=== PATIENT | male | born 1975 | race Caucasian/White ===

== ENCOUNTER 2017-06-25 17:58 | Inpatient (IN) | payer BC, MEDICAID ==
[~2017-06-25] VITALS: Ht 185.4 cm; Wt 89.4 kg
[2017-06-25 18:15] VITALS: BP 117/62
[2017-06-25] MEDS ORDERED: Activated Charcoal 50gm/240ml Btl ORAL ONE (18:15)
[2017-06-25] MEDS ORDERED: NS 1000ml 2,900 ML IVLG ONE ×2 (19:00→23:45)
[2017-06-25] MEDS ORDERED: Meropenem 1 GM in NS 110 ML IVPB ONE (19:00)
[2017-06-25 19:01] LABS: MEAN CORPUSCULAR HGB CONC 36.5 G/DL (32.0-36.0); MEAN CORPUSCULAR VOLUME 90 FL (80-99); MEAN PLATELET VOLUME 10.5 FL (6.5-10.1); PLATELET COUNT 74 K/UL (150-450); RED BLOOD COUNT 3.94 M/UL (4.70-6.10); RED CELL DISTRIBUTION WIDTH 11.3 % (11.6-14.8); WHITE BLOOD COUNT 8.8 K/UL (4.8-10.8)
[2017-06-25 19:21] LABS: APPEARANCE,URINE CLEAR; KETONES,URINE 3+ (NEGATIVE); LEUKOCYTE ESTERASE ,URINE 1+ (NEGATIVE); NITRITE,URINE NEGATIVE (NEGATIVE); PH,URINE 6 (4.5-8.0); PROTEIN,URINE 3+ (NEGATIVE); UROBILINOGEN,URINE 1 MG/DL (0.0-1.0)
[2017-06-25 19:29] LABS: ACETAMINOPHEN < 10 ug/mL (10-30); ALANINE AMINOTRANSFERASE 298 U/L (3-41); ALBUMIN/GLOBULIN RATIO 1.7 (1.0-2.7); ALCOHOL < 10 mg/dL; ANION GAP 13 (5-15); ASPARTATE AMINO TRANSFERASE 474 U/L (5-40); CALCIUM 8.6 mg/dL (8.6-10.2); CARBON DIOXIDE 22 mEQ/L (20-30); CHLORIDE 103 mEQ/L (98-107); CREATININE 1.2 mg/dL (0.7-1.2); GLOMERULAR FILTRATION RATE > 60 mL/min (>60); HEMOLYSIS 8; POTASSIUM 3.5 mEQ/L (3.4-4.9); SODIUM 138 mEQ/L (135-145)
[2017-06-25] MEDS ORDERED: Meropenem 1gm vial ONE (19:31)
[2017-06-25 19:39] LABS: WBC,URINE 0-2 /HPF (0 - 0)
[2017-06-25 19:40] LABS: AMORPHOUS SEDIMENT,UR FEW /LPF; BACTERIA,URINE FEW /HPF
[2017-06-25 19:43] LABS: ICTOTEST NEGATIVE
[2017-06-25 19:51] LABS: BILIRUBIN,DIRECT 0.3 mg/dL (0.1-0.3)
[2017-06-25 20:05] VITALS: BP 118/68
[2017-06-25 20:15] LABS: TROPONIN I < 0.30 ng/mL (<=0.30)
[2017-06-25 20:24] LABS: CKMB 20.7 ng/mL (< 6.7)
[2017-06-25 20:32] LABS: BAND NEUTROPHILS % (MANUAL) 1 % (0-8); BASOPHILS % (MANUAL) 0 % (0-2); EOSINOPHILS % (MANUAL) 0 % (0-3); LYMPHOCYTES % (MANUAL) 19 % (20-45); NEUTROPHILS % (MANUAL) 69 % (45-75); PLATELET ESTIMATE DECREASED; PLATELET MORPHOLOGY NORMAL; TOTAL CELLS COUNTED 100
[2017-06-25] MEDS ORDERED: UNOBMED (21:21)
[2017-06-25] MEDS ORDERED: Zolpidem 5mg tab ORAL PRN (21:30)
[2017-06-25] MEDS ORDERED: LORazepam Inj 2mg/ml 1ml IV PRN (21:30)
[2017-06-25] MEDS ORDERED: Miralax 17gm pkt ORAL PRN (21:30)
[2017-06-25] MEDS ORDERED: Mylanta II UD 30ml ORAL PRN (21:30)
[2017-06-25 21:40] VITALS: BP 113/78
[2017-06-25] MEDS ORDERED: Morphine Sulfate 2mg/ml Inj IVP PRN (22:00)
[2017-06-25 22:20] VITALS: BP 137/83
--- NOTE | 2017-06-25 23:42 | Emergency Room Report ---
History of Present Illness General Chief Complaint: Overdose Source: Patient, EMS Present Illness HPI This patient has a history of benzodiazepine abuse and overdose. He was recently admitted to [facility] for benzodiazepine overdose. He took a handful of 20-40 Clonopin earlier today. He has no other complaints. He is sleepy. Allergies: Coded Allergies: PENICILLINS (Verified Allergy, Unknown, 06/25/17) Patient History Past Medical History: see triage record, HIV Social History: Reports: smoking, alcohol use, drug use Reviewed Nursing Documentation: PMH: Agreed, PSxH: Agreed Review of Systems All Other Systems: negative except mentioned in HPI Physical Exam Vital Signs Date Time Temp Pulse Resp B/P (MAP) Pulse Ox O2 Delivery O2 Flow Rate FiO2 06/25/17 18:03 100.2 117 21 127/75 96 Room Air 06/25/17 18:15 2.0 Sp02 EP Interpretation: reviewed, normal General Appearance: no apparent distress, GCS 15, non-toxic, lethargic Head: normocephalic, atraumatic Eyes: bilateral eye normal inspection, bilateral eye PERRL ENT: hearing grossly normal, normal pharynx, no angioedema, normal voice Neck: full range of motion, supple/symm/no masses Respiratory: chest non-tender, lungs clear, normal breath sounds, speaking full sentences Cardiovascular #1: regular rate, rhythm, no edema Gastrointestinal: normal bowel sounds, non tender, soft, non-distended, no guarding, no rebound Rectal: deferred Musculoskeletal: back normal, gait/station normal, normal range of motion, non- tender, calf tenderness Neurologic: responsive, motor strength/tone normal, sensory intact, speech normal, other - Sleepy, non-focal Skin: normal color, no rash, warm/dry, well hydrated Medical Decision Making Diagnostic Impression: Primary Impression: Drug overdose Additional Impressions: Benzodiazepine abuse Benzodiazepine (tranquilizer) overdose Rhabdomyolysis Fever ER Course This patient presents with benzodiazepine overdose. He is also and rhabdomyolysis. He does not have a fever. He had episodes of diarrhea here in the emergency department. He is given aggressive IV fluid resuscitation. His given broad-spectrum antibiotics. He is admitted to the [facility]. This patient is critically ill. This patient required complex medical decision- making, aggressive intervention, extensive laboratory workup and monitoring. Critical care time: 40 minutes. Laboratory Tests Test 06/25/17 18:20 06/25/17 18:55 White Blood Count 8.8 K/UL (4.8-10.8) Red Blood Count 3.94 M/UL (4.70-6.10) L Hemoglobin 13.0 G/DL (14.2-18.0) L Hematocrit 35.7 % (42.0-52.0) L Mean Corpuscular Volume 90 FL (80-99) Mean Corpuscular Hemoglobin 33.0 PG (27.0-31.0) H Mean Corpuscular Hemoglobin Concent 36.5 G/DL (32.0-36.0) H Red Cell Distribution Width 11.3 % (11.6-14.8) L Platelet Count 74 K/UL (150-450) L Mean Platelet Volume 10.5 FL (6.5-10.1) H Neutrophils (%) (Auto) % (45.0-75.0) Lymphocytes (%) (Auto) % (20.0-45.0) Monocytes (%) (Auto) % (1.0-10.0) Eosinophils (%) (Auto) % (0.0-3.0) Basophils (%) (Auto) % (0.0-2.0) Differential Total Cells Counted 100 Neutrophils % (Manual) 69 % (45-75) Lymphocytes % (Manual) 19 % (20-45) L Monocytes % (Manual) 11 % (1-10) H Eosinophils % (Manual) 0 % (0-3) Basophils % (Manual) 0 % (0-2) Band Neutrophils 1 % (0-8) Platelet Estimate Decreased L Platelet Morphology Normal Red Blood Cell Morphology Normal Sodium Level 138 mEQ/L (135-145) Potassium Level 3.5 mEQ/L (3.4-4.9) Chloride Level 103 mEQ/L (98-107) Carbon Dioxide Level 22 mEQ/L (20-30) Anion Gap 13 (5-15) Blood Urea Nitrogen 13 mg/dL (7-23) Creatinine 1.2 mg/dL (0.7-1.2) Estimate Glomerular Filtration Rate > 60 mL/min (>60) Glucose Level 115 mg/dL (74-106) H Lactic Acid Level 1.10 mmol/L (0.66-2.22) Calcium Level 8.6 mg/dL (8.6-10.2) Total Bilirubin 2.3 mg/dL (0.0-1.2) H Direct Bilirubin 0.3 mg/dL (0.1-0.3) Aspartate Amino Transferase (AST) 474 U/L (5-40) H Alanine Aminotransferase (ALT) 298 U/L (3-41) H Alkaline Phosphatase 47 U/L (40-129) Total Creatine Kinase > 1700 U/L (38-174) H Creatine Kinase MB 20.7 ng/mL (< 6.7) H Creatine Kinase MB Relative Index 0.0 Troponin I < 0.30 ng/mL (<=0.30) Total Protein 6.0 g/dL (6.6-8.7) L Albumin 3.8 g/dL (3.5-5.2) Globulin 2.2 g/dL Albumin/Globulin Ratio 1.7 (1.0-2.7) Thyroid Stimulating Hormone (TSH) 2.150 uIU/mL (0.300-4.500) Salicylates Level < 1 mg/dL (10-30) L Acetaminophen Level < 10 ug/mL (10-30) L Serum Alcohol < 10 mg/dL Urine Color Yellow Urine Appearance Clear Urine pH 6 (4.5-8.0) Urine Specific [place] 1.020 (1.005-1.035) Urine Protein 3+ (NEGATIVE) H Urine Glucose (UA) 1+ (NEGATIVE) H Urine Ketones 3+ (NEGATIVE) H Urine Occult Blood 4+ (NEGATIVE) H Urine Nitrite Negative (NEGATIVE) Urine Bilirubin 1+ (NEGATIVE) H Urine Ictotest Negative Urine Urobilinogen 1 MG/DL (0.0-1.0) H Urine Leukocyte Esterase 1+ (NEGATIVE) H Urine RBC 2-4 /HPF (0 - 0) H Urine WBC 0-2 /HPF (0 - 0) Urine Squamous Epithelial Cells None /LPF (NONE/OCC) Urine Amorphous Sediment Few /LPF (NONE) H Urine Bacteria Few /HPF (NONE) Urine Opiates Screen Negative (NEGATIVE) Urine Barbiturates Screen Negative (NEGATIVE) Phencyclidine (PCP) Screen Negative (NEGATIVE) Urine Amphetamines Screen Positive (NEGATIVE) H Urine Benzodiazepines Screen Positive (NEGATIVE) H Urine Cocaine Screen Negative (NEGATIVE) Urine Marijuana (THC) Screen Negative (NEGATIVE) EKG Diagnostic Results Rate: tachycardiac Rhythm: other ST Segments: no acute changes Other Impression S.tachycardia Rhythm Strip Diag. Results EP Interpretation: yes Rate: 100's Rhythm: no PVC's, no ectopy, other Other Impression S.tachycardia. Last Vital Signs Date Time Temp Pulse Resp B/P (MAP) Pulse Ox O2 Delivery O2 Flow Rate FiO2 06/25/17 22:20 98.0 104 23 137/83 98 Nasal Cannula 2.0 Disposition: ADMITTED INPATIENT Condition: Critical Referrals: NOT CHOSEN IPA/,REFERRING (PCP) SUSAN NICK D.O. Jun 25, 2017 23:42
[2017-06-26 04:00] VITALS: BP 121/61
[2017-06-26 05:30] LABS: MEAN CORPUSCULAR HEMOGLOBIN 33.5 PG (27.0-31.0); MEAN CORPUSCULAR HGB CONC 36.1 G/DL (32.0-36.0); MEAN CORPUSCULAR VOLUME 93 FL (80-99); MEAN PLATELET VOLUME 8.9 FL (6.5-10.1); PLATELET COUNT 70 K/UL (150-450); RED BLOOD COUNT 3.86 M/UL (4.70-6.10); RED CELL DISTRIBUTION WIDTH 11.3 % (11.6-14.8); WHITE BLOOD COUNT 6.9 K/UL (4.8-10.8)
[2017-06-26 05:42] LABS: ALANINE AMINOTRANSFERASE 223 U/L (3-41); ALBUMIN/GLOBULIN RATIO 1.6 (1.0-2.7); ANION GAP 11 (5-15); ASPARTATE AMINO TRANSFERASE 284 U/L (5-40); CALCIUM 7.9 mg/dL (8.6-10.2); CARBON DIOXIDE 23 mEQ/L (20-30); CHLORIDE 108 mEQ/L (98-107); CHOLESTEROL 107 mg/dL (< 200); CREATININE 0.9 mg/dL (0.7-1.2); GLOMERULAR FILTRATION RATE > 60 mL/min (>60); HEMOLYSIS 4; LDL CHOLESTEROL (CALC.) 59 mg/dL (60-99); POTASSIUM 3.7 mEQ/L (3.4-4.9); SODIUM 142 mEQ/L (135-145); TOTAL PROTEIN 5.3 g/dL (6.6-8.7)
[2017-06-26 06:14] LABS: BILIRUBIN,DIRECT 0.3 mg/dL (0.1-0.3)
[2017-06-26 08:00] VITALS: BP 121/68
--- NOTE | 2017-06-26 11:29 | History and Physical ---
History of Present Illness General Date patient seen: Jun 26, 2017 Reason for Hospitalization: Overdose Present Illness HPI 42 year old male history of benzodiazepine abuse and overdose. He took a handful of 20-40 Clonopin with suicidal intention. He has no other complaints. He is admitted to [facility] for closer monitoring Allergies: Coded Allergies: PENICILLINS (Verified Allergy, Unknown, 06/25/17) Medication History Miscellaneous Medications Unable to Obtain Medications (Unable To Obtain Meds), (Reported) Patient History Healthcare decision maker Resuscitation status Full Code Advanced Directive on File No Past Medical/Surgical History Past Medical/Surgical History: (1) Benzodiazepine abuse Review of Systems All Other Systems: negative except mentioned in HPI Physical Exam General Appearance: WD/WN, alert Lines, tubes and drains: peripheral, central line HEENT: normocephalic, atraumatic Neck: non-tender, normal alignment Respiratory/Chest: chest wall non-tender, lungs clear Breasts: no masses Cardiovascular/Chest: normal peripheral pulses, normal rate Abdomen: normal bowel sounds, non tender Genitourinary/Rectal: normal genital exam, normal rectal exam Extremities: normal range of motion, non-tender Neurologic: joist setter II-XII grossly normal, no motor/sensory deficits Lymphatic: anterior cervical Last 24 Hour Vital Signs Date Time Temp Pulse Resp B/P (MAP) Pulse Ox O2 Delivery O2 Flow Rate FiO2 06/26/17 08:00 99.0 97 20 121/68 99 Nasal Cannula 2.0 06/26/17 07:54 99 06/26/17 04:00 101 06/26/17 04:00 99.5 103 24 121/61 95 Nasal Cannula 2.0 06/26/17 00:00 2.0 06/25/17 23:50 110 06/25/17 22:20 98.0 104 23 137/83 98 Nasal Cannula 2.0 06/25/17 21:40 97.5 90 17 113/78 98 Nasal Cannula 2.0 06/25/17 21:40 100.5 90 17 113/78 98 Nasal Cannula 2.0 06/25/17 20:05 97.9 93 19 118/68 98 Nasal Cannula 2.0 06/25/17 18:15 100.5 107 20 117/62 100 Nasal Cannula 2.0 06/25/17 18:05 117 21 Room Air 06/25/17 18:03 100.2 117 21 127/75 96 Room Air Laboratory Tests Test 06/25/17 18:20 06/25/17 18:55 06/26/17 03:00 White Blood Count 8.8 K/UL (4.8-10.8) 6.9 K/UL (4.8-10.8) Red Blood Count 3.94 M/UL (4.70-6.10) L 3.86 M/UL (4.70-6.10) L Hemoglobin 13.0 G/DL (14.2-18.0) L 12.9 G/DL (14.2-18.0) L Hematocrit 35.7 % (42.0-52.0) L 35.8 % (42.0-52.0) L Mean Corpuscular Volume 90 FL (80-99) 93 FL (80-99) Mean Corpuscular Hemoglobin 33.0 PG (27.0-31.0) H 33.5 PG (27.0-31.0) H Mean Corpuscular Hemoglobin Concent 36.5 G/DL (32.0-36.0) H 36.1 G/DL (32.0-36.0) H Red Cell Distribution Width 11.3 % (11.6-14.8) L 11.3 % (11.6-14.8) L Platelet Count 74 K/UL (150-450) L 70 K/UL (150-450) L Mean Platelet Volume 10.5 FL (6.5-10.1) H 8.9 FL (6.5-10.1) Neutrophils (%) (Auto) % (45.0-75.0) % (45.0-75.0) Lymphocytes (%) (Auto) % (20.0-45.0) % (20.0-45.0) Monocytes (%) (Auto) % (1.0-10.0) % (1.0-10.0) Eosinophils (%) (Auto) % (0.0-3.0) % (0.0-3.0) Basophils (%) (Auto) % (0.0-2.0) % (0.0-2.0) Differential Total Cells Counted 100 Neutrophils % (Manual) 69 % (45-75) Lymphocytes % (Manual) 19 % (20-45) L Monocytes % (Manual) 11 % (1-10) H Eosinophils % (Manual) 0 % (0-3) Basophils % (Manual) 0 % (0-2) Band Neutrophils 1 % (0-8) Platelet Estimate Decreased L Platelet Morphology Normal Red Blood Cell Morphology Normal Sodium Level 138 mEQ/L (135-145) 142 mEQ/L (135-145) Potassium Level 3.5 mEQ/L (3.4-4.9) 3.7 mEQ/L (3.4-4.9) Chloride Level 103 mEQ/L (98-107) 108 mEQ/L (98-107) H Carbon Dioxide Level 22 mEQ/L (20-30) 23 mEQ/L (20-30) Anion Gap 13 (5-15) 11 (5-15) Blood Urea Nitrogen 13 mg/dL (7-23) 8 mg/dL (7-23) Creatinine 1.2 mg/dL (0.7-1.2) 0.9 mg/dL (0.7-1.2) Estimat Glomerular Filtration Rate > 60 mL/min (>60) > 60 mL/min (>60) Glucose Level 115 mg/dL (74-106) H 87 mg/dL (74-106) Lactic Acid Level 1.10 mmol/L (0.66-2.22) Calcium Level 8.6 mg/dL (8.6-10.2) 7.9 mg/dL (8.6-10.2) L Total Bilirubin 2.3 mg/dL (0.0-1.2) H 1.5 mg/dL (0.0-1.2) H Direct Bilirubin 0.3 mg/dL (0.1-0.3) 0.3 mg/dL (0.1-0.3) Aspartate Amino Transf (AST/SGOT) 474 U/L (5-40) H 284 U/L (5-40) H Alanine Aminotransferase (ALT/SGPT) 298 U/L (3-41) H 223 U/L (3-41) H Alkaline Phosphatase 47 U/L (40-129) 44 U/L (40-129) Total Creatine Kinase > 1700 U/L (38-174) H Creatine Kinase MB 20.7 ng/mL (< 6.7) H Creatine Kinase MB Relative Index 0.0 Troponin I < 0.30 ng/mL (<=0.30) Total Protein 6.0 g/dL (6.6-8.7) L 5.3 g/dL (6.6-8.7) L Albumin 3.8 g/dL (3.5-5.2) 3.3 g/dL (3.5-5.2) L Globulin 2.2 g/dL 2.0 g/dL Albumin/Globulin Ratio 1.7 (1.0-2.7) 1.6 (1.0-2.7) Thyroid Stimulating Hormone (TSH) 2.150 uIU/mL (0.300-4.500) 1.030 uIU/mL (0.300-4.500) Salicylates Level < 1 mg/dL (10-30) L Acetaminophen Level < 10 ug/mL (10-30) L Serum Alcohol < 10 mg/dL Urine Color Yellow Urine Appearance Clear Urine pH 6 (4.5-8.0) Urine Specific [place] 1.020 (1.005-1.035) Urine Protein 3+ (NEGATIVE) H Urine Glucose (UA) 1+ (NEGATIVE) H Urine Ketones 3+ (NEGATIVE) H Urine Occult Blood 4+ (NEGATIVE) H Urine Nitrite Negative (NEGATIVE) Urine Bilirubin 1+ (NEGATIVE) H Urine Ictotest Negative Urine Urobilinogen 1 MG/DL (0.0-1.0) H Urine Leukocyte Esterase 1+ (NEGATIVE) H Urine RBC 2-4 /HPF (0 - 0) H Urine WBC 0-2 /HPF (0 - 0) Urine Squamous Epithelial Cells None /LPF (NONE/OCC) Urine Amorphous Sediment Few /LPF (NONE) H Urine Bacteria Few /HPF (NONE) Urine Opiates Screen Negative (NEGATIVE) Urine Barbiturates Screen Negative (NEGATIVE) Phencyclidine (PCP) Screen Negative (NEGATIVE) Urine Amphetamines Screen Positive (NEGATIVE) H Urine Benzodiazepines Screen Positive (NEGATIVE) H Urine Cocaine Screen Negative (NEGATIVE) Urine Marijuana (THC) Screen Negative (NEGATIVE) Triglycerides Level 104 mg/dL (< 150) Cholesterol Level 107 mg/dL (< 200) LDL Cholesterol 59 mg/dL (60-99) L HDL Cholesterol 27 mg/dL (> 60) Cholesterol/HDL Ratio 4.0 (3.3-4.4) Height (Feet): 6 Height (Inches): 1.00 Weight (Pounds): 197 Medications Current Medications Medications (Trade) Dose Ordered Sig/Chani Route PRN Reason Start Time Stop Time Status Last Admin Dose Admin Acetaminophen (Tylenol) 650 mg Q4H PRN ORAL fever 06/25/17 21:30 07/25/17 21:29 Al Hydroxide/Mg Hydroxide (Mylanta II) 30 ml Q6H PRN ORAL dyspepsia 06/25/17 21:30 07/25/17 21:29 Dextrose (Dextrose 50%) STAT PRN IV Hypoglycemia 06/25/17 21:30 07/25/17 21:29 Lorazepam (Ativan 2mg/ml 1ml) 0.5 mg Q4H PRN IV For Anxiety 06/25/17 21:30 07/02/17 21:29 Morphine Sulfate (Morphine Sulfate) 1 mg Q4H PRN IVP For Pain 4-10 06/25/17 22:00 07/02/17 21:59 Ondansetron HCl (Zofran) 4 mg Q6H PRN IVP Nausea & Vomiting 06/25/17 21:30 07/25/17 21:29 Polyethylene Glycol (Miralax) 17 gm HSPRN PRN ORAL Constipation 06/25/17 21:30 07/25/17 21:29 Zolpidem Tartrate (Ambien) 5 mg HSPRN PRN ORAL Insomnia 06/25/17 21:30 07/02/17 21:29 Assessment/Plan Problem List: (1) Acute encephalopathy ICD Codes: G93.40 - Encephalopathy, unspecified SNOMED: 8757983 (2) Fever ICD Codes: R50.9 - Fever, unspecified SNOMED: 058175322 (3) Drug overdose ICD Codes: T50.901A - Poisoning by unspecified drugs, medicaments and biological substances, accidental (unintentional), initial encounter SNOMED: 13798521 Assessment/Plan psyc evaluation 1:1 sitter aspiration precaution transfer to psych facility when medically stable and pt is more awake. BRAD SWARTZ Jun 26, 2017 11:29
[2017-06-26 11:46] VITALS: BP 127/81
[2017-06-26] MEDS ORDERED: [UNRECOGNIZED DRUG - OTHER] IV ONE (13:00)
[2017-06-26] MEDS ORDERED: D5 IV ONE (13:00)
[2017-06-26] MEDS ORDERED: MULTIVITAMIN IV ONE (13:00)
--- NOTE | 2017-06-26 13:31 | Diagnostic Imaging Report ---
Indication: Dyspnea Comparison: None A single view chest radiograph was obtained. Findings: Cardiomediastinal appearance is within normal limits for age. Lung volumes are low but clear. Pulmonary vascularity is appropriate. The diaphragmatic contour is smooth and costophrenic angles are sharp. No pleural effusions are identified. The bones are unremarkable. Impression: No acute findings
--- NOTE | 2017-06-26 13:32 | Consultation ---
History of Present Illness General Chief Complaint: Overdose Present Illness HPI the pt is a 42 yo male with hx of anxiety do? who recently lost his job and his place, pw s/p od on klonopin. the pt was pleasant however drowsy. He stated that he went to [facility] about two weeks ago and was seen by a psychiatrist [place] her klonopin. He was unable to recall. the pt stated that currently he is not suicidal however he meant to end his life last night. the pt denied using drugs. his urine tox is pos for amphetamine. the stated that he does not endorse si/ the pt has multiple risk factor. poor support system. stated his family hate him because he is trevino. the sw evaluated him as well and will call family. the pt denied any psych sxs. Allergies: Coded Allergies: PENICILLINS (Verified Allergy, Unknown, 06/25/17) Medication History Miscellaneous Medications Unable to Obtain Medications (Unable To Obtain Meds), (Reported) Patient History History Provided By: Patient, Medical Record, PMD Healthcare decision maker Resuscitation status Full Code Advanced Directive on File No Past Medical/Surgical History Past Medical/Surgical History: (1) Fever (2) Drug overdose (3) Rhabdomyolysis (4) Benzodiazepine (tranquilizer) overdose (5) Benzodiazepine abuse (6) Acute encephalopathy Review of Systems Psychiatric: Reports: prior hx Physical Exam General Appearance: no apparent distress, alert, thin Neurologic: alert, oriented x 3, responsive, normal mood/affect Last 24 Hour Vital Signs Date Time Temp Pulse Resp B/P (MAP) Pulse Ox O2 Delivery O2 Flow Rate FiO2 06/26/17 11:46 98.0 105 22 127/81 95 Nasal Cannula 2.0 06/26/17 08:00 99.0 97 20 121/68 99 Nasal Cannula 2.0 06/26/17 07:54 99 06/26/17 04:00 101 06/26/17 04:00 99.5 103 24 121/61 95 Nasal Cannula 2.0 06/26/17 00:00 2.0 06/25/17 23:50 110 06/25/17 22:20 98.0 104 23 137/83 98 Nasal Cannula 2.0 06/25/17 21:40 97.5 90 17 113/78 98 Nasal Cannula 2.0 06/25/17 21:40 100.5 90 17 113/78 98 Nasal Cannula 2.0 06/25/17 20:05 97.9 93 19 118/68 98 Nasal Cannula 2.0 06/25/17 18:15 100.5 107 20 117/62 100 Nasal Cannula 2.0 06/25/17 18:05 117 21 Room Air 06/25/17 18:03 100.2 117 21 127/75 96 Room Air Laboratory Tests Test 06/25/17 18:20 06/25/17 18:55 06/26/17 03:00 White Blood Count 8.8 K/UL (4.8-10.8) 6.9 K/UL (4.8-10.8) Red Blood Count 3.94 M/UL (4.70-6.10) L 3.86 M/UL (4.70-6.10) L Hemoglobin 13.0 G/DL (14.2-18.0) L 12.9 G/DL (14.2-18.0) L Hematocrit 35.7 % (42.0-52.0) L 35.8 % (42.0-52.0) L Mean Corpuscular Volume 90 FL (80-99) 93 FL (80-99) Mean Corpuscular Hemoglobin 33.0 PG (27.0-31.0) H 33.5 PG (27.0-31.0) H Mean Corpuscular Hemoglobin Concent 36.5 G/DL (32.0-36.0) H 36.1 G/DL (32.0-36.0) H Red Cell Distribution Width 11.3 % (11.6-14.8) L 11.3 % (11.6-14.8) L Platelet Count 74 K/UL (150-450) L 70 K/UL (150-450) L Mean Platelet Volume 10.5 FL (6.5-10.1) H 8.9 FL (6.5-10.1) Neutrophils (%) (Auto) % (45.0-75.0) % (45.0-75.0) Lymphocytes (%) (Auto) % (20.0-45.0) % (20.0-45.0) Monocytes (%) (Auto) % (1.0-10.0) % (1.0-10.0) Eosinophils (%) (Auto) % (0.0-3.0) % (0.0-3.0) Basophils (%) (Auto) % (0.0-2.0) % (0.0-2.0) Differential Total Cells Counted 100 Neutrophils % (Manual) 69 % (45-75) Lymphocytes % (Manual) 19 % (20-45) L Monocytes % (Manual) 11 % (1-10) H Eosinophils % (Manual) 0 % (0-3) Basophils % (Manual) 0 % (0-2) Band Neutrophils 1 % (0-8) Platelet Estimate Decreased L Platelet Morphology Normal Red Blood Cell Morphology Normal Sodium Level 138 mEQ/L (135-145) 142 mEQ/L (135-145) Potassium Level 3.5 mEQ/L (3.4-4.9) 3.7 mEQ/L (3.4-4.9) Chloride Level 103 mEQ/L (98-107) 108 mEQ/L (98-107) H Carbon Dioxide Level 22 mEQ/L (20-30) 23 mEQ/L (20-30) Anion Gap 13 (5-15) 11 (5-15) Blood Urea Nitrogen 13 mg/dL (7-23) 8 mg/dL (7-23) Creatinine 1.2 mg/dL (0.7-1.2) 0.9 mg/dL (0.7-1.2) Estimat Glomerular Filtration Rate > 60 mL/min (>60) > 60 mL/min (>60) Glucose Level 115 mg/dL (74-106) H 87 mg/dL (74-106) Lactic Acid Level 1.10 mmol/L (0.66-2.22) Calcium Level 8.6 mg/dL (8.6-10.2) 7.9 mg/dL (8.6-10.2) L Total Bilirubin 2.3 mg/dL (0.0-1.2) H 1.5 mg/dL (0.0-1.2) H Direct Bilirubin 0.3 mg/dL (0.1-0.3) 0.3 mg/dL (0.1-0.3) Aspartate Amino Transf (AST/SGOT) 474 U/L (5-40) H 284 U/L (5-40) H Alanine Aminotransferase (ALT/SGPT) 298 U/L (3-41) H 223 U/L (3-41) H Alkaline Phosphatase 47 U/L (40-129) 44 U/L (40-129) Total Creatine Kinase > 1700 U/L (38-174) H Creatine Kinase MB 20.7 ng/mL (< 6.7) H Creatine Kinase MB Relative Index 0.0 Troponin I < 0.30 ng/mL (<=0.30) Total Protein 6.0 g/dL (6.6-8.7) L 5.3 g/dL (6.6-8.7) L Albumin 3.8 g/dL (3.5-5.2) 3.3 g/dL (3.5-5.2) L Globulin 2.2 g/dL 2.0 g/dL Albumin/Globulin Ratio 1.7 (1.0-2.7) 1.6 (1.0-2.7) Thyroid Stimulating Hormone (TSH) 2.150 uIU/mL (0.300-4.500) 1.030 uIU/mL (0.300-4.500) Salicylates Level < 1 mg/dL (10-30) L Acetaminophen Level < 10 ug/mL (10-30) L Serum Alcohol < 10 mg/dL Urine Color Yellow Urine Appearance Clear Urine pH 6 (4.5-8.0) Urine Specific [place] 1.020 (1.005-1.035) Urine Protein 3+ (NEGATIVE) H Urine Glucose (UA) 1+ (NEGATIVE) H Urine Ketones 3+ (NEGATIVE) H Urine Occult Blood 4+ (NEGATIVE) H Urine Nitrite Negative (NEGATIVE) Urine Bilirubin 1+ (NEGATIVE) H Urine Ictotest Negative Urine Urobilinogen 1 MG/DL (0.0-1.0) H Urine Leukocyte Esterase 1+ (NEGATIVE) H Urine RBC 2-4 /HPF (0 - 0) H Urine WBC 0-2 /HPF (0 - 0) Urine Squamous Epithelial Cells None /LPF (NONE/OCC) Urine Amorphous Sediment Few /LPF (NONE) H Urine Bacteria Few /HPF (NONE) Urine Opiates Screen Negative (NEGATIVE) Urine Barbiturates Screen Negative (NEGATIVE) Phencyclidine (PCP) Screen Negative (NEGATIVE) Urine Amphetamines Screen Positive (NEGATIVE) H Urine Benzodiazepines Screen Positive (NEGATIVE) H Urine Cocaine Screen Negative (NEGATIVE) Urine Marijuana (THC) Screen Negative (NEGATIVE) Triglycerides Level 104 mg/dL (< 150) Cholesterol Level 107 mg/dL (< 200) LDL Cholesterol 59 mg/dL (60-99) L HDL Cholesterol 27 mg/dL (> 60) Cholesterol/HDL Ratio 4.0 (3.3-4.4) Height (Feet): 6 Height (Inches): 1.00 Weight (Pounds): 197 Medications Current Medications Medications (Trade) Dose Ordered Sig/Chani Route PRN Reason Start Time Stop Time Status Last Admin Dose Admin Acetaminophen (Tylenol) 650 mg Q4H PRN ORAL fever 06/25/17 21:30 07/25/17 21:29 Al Hydroxide/Mg Hydroxide (Mylanta II) 30 ml Q6H PRN ORAL dyspepsia 06/25/17 21:30 07/25/17 21:29 Dextrose (Dextrose 50%) STAT PRN IV Hypoglycemia 06/25/17 21:30 07/25/17 21:29 Dextrose/Sodium Chloride 1,000 ml @ 75 mls/hr [id number] IV 06/27/17 02:30 07/27/17 02:29 Lorazepam (Ativan 2mg/ml 1ml) 0.5 mg Q4H PRN IV For Anxiety 06/25/17 21:30 07/02/17 21:29 Morphine Sulfate (Morphine Sulfate) 1 mg Q4H PRN IVP For Pain 4-10 06/25/17 22:00 07/02/17 21:59 Multivitamins 10 ml/Dextrose/ Sodium Chloride 1,010 ml @ 75 mls/hr [id number] ONCE IV 06/26/17 13:00 06/27/17 02:27 Ondansetron HCl (Zofran) 4 mg Q6H PRN IVP Nausea & Vomiting 06/25/17 21:30 07/25/17 21:29 Polyethylene Glycol (Miralax) 17 gm HSPRN PRN ORAL Constipation 06/25/17 21:30 07/25/17 21:29 Zolpidem Tartrate (Ambien) 5 mg HSPRN PRN ORAL Insomnia 06/25/17 21:30 07/02/17 21:29 Assessment/Plan Status: stable Assessment/Plan adjustment d/o ?substance use d/o, s/p od -rec psych hospt after medically cleared. -rec [id number] Leti Nascimento M.D. Jun 26, 2017 13:32
--- NOTE | 2017-06-26 15:01 | GI Initial Consult Note ---
History of Present Illness General Date patient seen: Jun 26, 2017 Time patient seen: 14:39 Reason for Hospitalization: Overdose Referring physician: BRAD SWARTZ Reason for Consultation: Transaminitis Present Illness HPI This patient has a history of benzodiazepine abuse and overdose. He was recently admitted to [facility] for benzodiazepine overdose. He took a handful of 20-40 Clonopin earlier today. He has no other complaints. He is sleepy. GI Consult. HPI as noted above. GI consulted for transaminitis. Pt seen on floor, awake but very sleepy. NAD with no active s/sx of N/V/D. He presents today with BZD OD and transaminitis. No known history of endoscopic procedure. Hx of HIV. Home Meds Reported Medications Unable to Obtain Medications (UNABLE TO OBTAIN MEDS) 1 Ea Ea 06/25/17 Med list reviewed/reconciled: Yes Allergies: Coded Allergies: PENICILLINS (Verified Allergy, Unknown, 06/25/17) Patient History Limited by: medical condition History Provided By: Medical Record PMH Narrative Past Medical History: see triage record, HIV Social History: Reports: smoking, alcohol use, drug use Reviewed Nursing Documentation: PMH: Agreed, PSxH: Agreed Social History: Reports: drug use Review of Systems All Other Systems: limited Physical Exam Vital Signs Date Time Temp Pulse Resp B/P (MAP) Pulse Ox O2 Delivery O2 Flow Rate FiO2 06/25/17 18:03 100.2 117 21 127/75 96 Room Air 06/25/17 18:15 2.0 Sp02 EP Interpretation: reviewed Labs Laboratory Tests Test 06/25/17 18:20 06/25/17 18:55 06/26/17 03:00 White Blood Count 8.8 K/UL (4.8-10.8) 6.9 K/UL (4.8-10.8) Red Blood Count 3.94 M/UL (4.70-6.10) L 3.86 M/UL (4.70-6.10) L Hemoglobin 13.0 G/DL (14.2-18.0) L 12.9 G/DL (14.2-18.0) L Hematocrit 35.7 % (42.0-52.0) L 35.8 % (42.0-52.0) L Mean Corpuscular Volume 90 FL (80-99) 93 FL (80-99) Mean Corpuscular Hemoglobin 33.0 PG (27.0-31.0) H 33.5 PG (27.0-31.0) H Mean Corpuscular Hemoglobin Concent 36.5 G/DL (32.0-36.0) H 36.1 G/DL (32.0-36.0) H Red Cell Distribution Width 11.3 % (11.6-14.8) L 11.3 % (11.6-14.8) L Platelet Count 74 K/UL (150-450) L 70 K/UL (150-450) L Mean Platelet Volume 10.5 FL (6.5-10.1) H 8.9 FL (6.5-10.1) Neutrophils (%) (Auto) % (45.0-75.0) % (45.0-75.0) Lymphocytes (%) (Auto) % (20.0-45.0) % (20.0-45.0) Monocytes (%) (Auto) % (1.0-10.0) % (1.0-10.0) Eosinophils (%) (Auto) % (0.0-3.0) % (0.0-3.0) Basophils (%) (Auto) % (0.0-2.0) % (0.0-2.0) Differential Total Cells Counted 100 Neutrophils % (Manual) 69 % (45-75) Lymphocytes % (Manual) 19 % (20-45) L Monocytes % (Manual) 11 % (1-10) H Eosinophils % (Manual) 0 % (0-3) Basophils % (Manual) 0 % (0-2) Band Neutrophils 1 % (0-8) Platelet Estimate Decreased L Platelet Morphology Normal Red Blood Cell Morphology Normal Sodium Level 138 mEQ/L (135-145) 142 mEQ/L (135-145) Potassium Level 3.5 mEQ/L (3.4-4.9) 3.7 mEQ/L (3.4-4.9) Chloride Level 103 mEQ/L (98-107) 108 mEQ/L (98-107) H Carbon Dioxide Level 22 mEQ/L (20-30) 23 mEQ/L (20-30) Anion Gap 13 (5-15) 11 (5-15) Blood Urea Nitrogen 13 mg/dL (7-23) 8 mg/dL (7-23) Creatinine 1.2 mg/dL (0.7-1.2) 0.9 mg/dL (0.7-1.2) Estimat Glomerular Filtration Rate > 60 mL/min (>60) > 60 mL/min (>60) Glucose Level 115 mg/dL (74-106) H 87 mg/dL (74-106) Lactic Acid Level 1.10 mmol/L (0.66-2.22) Calcium Level 8.6 mg/dL (8.6-10.2) 7.9 mg/dL (8.6-10.2) L Total Bilirubin 2.3 mg/dL (0.0-1.2) H 1.5 mg/dL (0.0-1.2) H Direct Bilirubin 0.3 mg/dL (0.1-0.3) 0.3 mg/dL (0.1-0.3) Aspartate Amino Transf (AST/SGOT) 474 U/L (5-40) H 284 U/L (5-40) H Alanine Aminotransferase (ALT/SGPT) 298 U/L (3-41) H 223 U/L (3-41) H Alkaline Phosphatase 47 U/L (40-129) 44 U/L (40-129) Total Creatine Kinase > 1700 U/L (38-174) H Creatine Kinase MB 20.7 ng/mL (< 6.7) H Creatine Kinase MB Relative Index 0.0 Troponin I < 0.30 ng/mL (<=0.30) Total Protein 6.0 g/dL (6.6-8.7) L 5.3 g/dL (6.6-8.7) L Albumin 3.8 g/dL (3.5-5.2) 3.3 g/dL (3.5-5.2) L Globulin 2.2 g/dL 2.0 g/dL Albumin/Globulin Ratio 1.7 (1.0-2.7) 1.6 (1.0-2.7) Thyroid Stimulating Hormone (TSH) 2.150 uIU/mL (0.300-4.500) 1.030 uIU/mL (0.300-4.500) Salicylates Level < 1 mg/dL (10-30) L Acetaminophen Level < 10 ug/mL (10-30) L Serum Alcohol < 10 mg/dL Urine Color Yellow Urine Appearance Clear Urine pH 6 (4.5-8.0) Urine Specific [place] 1.020 (1.005-1.035) Urine Protein 3+ (NEGATIVE) H Urine Glucose (UA) 1+ (NEGATIVE) H Urine Ketones 3+ (NEGATIVE) H Urine Occult Blood 4+ (NEGATIVE) H Urine Nitrite Negative (NEGATIVE) Urine Bilirubin 1+ (NEGATIVE) H Urine Ictotest Negative Urine Urobilinogen 1 MG/DL (0.0-1.0) H Urine Leukocyte Esterase 1+ (NEGATIVE) H Urine RBC 2-4 /HPF (0 - 0) H Urine WBC 0-2 /HPF (0 - 0) Urine Squamous Epithelial Cells None /LPF (NONE/OCC) Urine Amorphous Sediment Few /LPF (NONE) H Urine Bacteria Few /HPF (NONE) Urine Opiates Screen Negative (NEGATIVE) Urine Barbiturates Screen Negative (NEGATIVE) Phencyclidine (PCP) Screen Negative (NEGATIVE) Urine Amphetamines Screen Positive (NEGATIVE) H Urine Benzodiazepines Screen Positive (NEGATIVE) H Urine Cocaine Screen Negative (NEGATIVE) Urine Marijuana (THC) Screen Negative (NEGATIVE) Triglycerides Level 104 mg/dL (< 150) Cholesterol Level 107 mg/dL (< 200) LDL Cholesterol 59 mg/dL (60-99) L HDL Cholesterol 27 mg/dL (> 60) Cholesterol/HDL Ratio 4.0 (3.3-4.4) General Appearance: well appearing, no apparent distress, alert Head: normocephalic EENT: PERRL/EOMI, normal ENT inspection Neck: supple Respiratory: normal breath sounds, no respiratory distress Cardiovascular: normal rate Gastrointestinal: normal inspection, non tender, soft, normal bowel sounds Rectal: deferred Neurologic: alert Skin: normal inspection, normal color, no rash, warm/dry, palpation normal, well hydrated Lymphatic: normal inspection, no adenopathy Current Medications Current Medications Medications (Trade) Dose Ordered Sig/Chani Route PRN Reason Start Time Stop Time Status Last Admin Dose Admin Acetaminophen (Tylenol) 650 mg Q4H PRN ORAL fever 06/25/17 21:30 07/25/17 21:29 Al Hydroxide/Mg Hydroxide (Mylanta II) 30 ml Q6H PRN ORAL dyspepsia 06/25/17 21:30 07/25/17 21:29 Dextrose (Dextrose 50%) STAT PRN IV Hypoglycemia 06/25/17 21:30 07/25/17 21:29 Dextrose/Sodium Chloride 1,000 ml @ 75 mls/hr [id number] IV 06/27/17 02:30 07/27/17 02:29 Lorazepam (Ativan 2mg/ml 1ml) 0.5 mg Q4H PRN IV For Anxiety 06/25/17 21:30 07/02/17 21:29 Morphine Sulfate (Morphine Sulfate) 1 mg Q4H PRN IVP For Pain 4-10 06/25/17 22:00 07/02/17 21:59 Multivitamins 10 ml/Dextrose/ Sodium Chloride 1,010 ml @ 75 mls/hr [id number] ONCE IV 06/26/17 13:00 06/27/17 02:27 06/26/17 13:41 Ondansetron HCl (Zofran) 4 mg Q6H PRN IVP Nausea & Vomiting 06/25/17 21:30 07/25/17 21:29 Polyethylene Glycol (Miralax) 17 gm HSPRN PRN ORAL Constipation 06/25/17 21:30 07/25/17 21:29 Zolpidem Tartrate (Ambien) 5 mg HSPRN PRN ORAL Insomnia 06/25/17 21:30 07/02/17 21:29 GI: Plan Problems: (1) Transaminitis (2) Drug overdose (3) Rhabdomyolysis (4) Benzodiazepine abuse Plan supportive care at this time regular diet IV hydration + electrolyte monitor LFTs manage BZD withdrawal symptoms fu labs Discussed with Dr. Bal. Thank you for referring this patient, we will follow. Dunia Meredith N.P. Jun 26, 2017 15:01
[2017-06-26 15:35] VITALS: BP 129/64
--- NOTE | 2017-06-26 17:56 | Cardiology Report ---
APPROVED REPORT EKG Measurement Heart [id number] Sinus tachycardia Otherwise normal ECG
--- NOTE | 2017-06-26 17:56 | Cardiology Report ---
APPROVED REPORT EKG Measurement Heart [id number] Sinus tachycardia Otherwise normal ECG
[2017-06-26] MEDS ORDERED: NS Irrig 1000ml ONE (18:44)
[2017-06-27] MEDS ORDERED: D5 1/2NS 1,000 ML IV SCH (02:30)
--- NOTE | 2017-06-28 09:32 | Discharge Summary ---
Discharge Summary Hospital Course Date of Admission Jun 25, 2017 at 19:32 Date of Discharge Jun 26, 2017 at 18:45 Admitting Diagnosis BENZO OD, FEVER HPI Tyrell Richardson is a 42 year old male who was admitted on Jun 25, 2017 at 19:32 for Benzodiazepines Overdose, Fever Hospital Course [id number] Discharge Discharge Disposition Patient left AMA Discharge Diagnoses: Mayuri Lee NP Jun 28, 2017 09:32
--- NOTE | 2017-06-28 21:32 | Discharge Summary 2 SIG ---
DATE OF ADMISSION: 06/25/2017 DATE OF DISCHARGE: 06/26/2017 CONSULTANTS: 1. Leti Nascimento M.D. 2. Nils Bal M.D. BRIEF HOSPITAL COURSE: The patient is a 42-year-old male with history of benzodiazepine abuse and overdose, took handful of 20 to 40 Klonopin with suicidal intention. On evaluation at ED, temperature was 100.2 degrees, platelet was 74,000. AST 474 and ALT 298. Total CK was 1700. Troponin was negative. Urine toxicology was positive for amphetamine and benzodiazepine. EKG was in sinus tachycardia. He was given aggressive IV resuscitation and was admitted to telemetry for evaluation of acute encephalopathy. On psychiatric evaluation, he was diagnosed to have adjustment disorder with substance abuse and overdose. The patient was recommended transfer to a psychiatric hospital, however, the patient insisted on signing out and the patient left against medical advice. FINAL DIAGNOSES: 1. Acute toxic encephalopathy, secondary to drug overdose. 2. Drug overdose. 3. Fever. 4. Adjustment disorder. 5. Elevated liver transaminases. 6. Rhabdomyolysis. DISCHARGE DISPOSITION: The patient left AMA. Allan Santana M.D. I have been assigned to dictate discharge summary on this account and I was not involved in the patient's management. Mayuri Lee N.P. DR: TYLER JOB#: [id number] CC: CAROL
== END 2017-06-26 18:45 | disposition left against medical advice (07) | DRG 917 ==
LOC: EDUNIT# 17:58 → EDBD 17:58 → EMR 19:30 → 2W 19:32 → EDBEDREQ 20:17 → 2E 06-26 18:16
DX: T42.4X2A Poisoning by benzodiazepines, intentional self-harm, initial encounter (principal); G92 Toxic encephalopathy; M62.82 Rhabdomyolysis; R50.9 Fever, unspecified; F43.20 Adjustment disorder, unspecified; F13.10 Sedative, hypnotic or anxiolytic abuse, uncomplicated; R79.89 Other specified abnormal findings of blood chemistry; Z88.0 Allergy status to penicillin
CPT/HCPCS: 36415; 51702; 71010; 80053; 80061; 80300; 80329; 81003; 82248; 82550; 82553; 83605; 84443; 84484; 85007; 85025; 87040; 87081; 93005; 93970